=== PATIENT | male | born 1960 | race Caucasian/White ===

== ENCOUNTER 2016-09-07 20:37 | Emergency (ER) | payer OTHER ==
[~2016-09-07] VITALS: Ht 177.8 cm; Wt 99.8 kg
--- NOTE | 2016-09-07 21:14 | ED PSYCHIATRIC COMPLAINT ---
History of Present Illness General Chief Complaint: ETOH/Drug Related Complaint Stated Complaint: BIBA ETOH Source: patient, family, old records, EMS, police Exam Limitations: no limitations Vital Signs & Intake/Output Vital Signs & Intake/Output Vital Signs Date Time Temp Pulse Resp B/P Pulse O2 O2 Flow FiO2 Ox Delivery Rate 09/08 626 98.4 81 20 146/81 95 Room Air 09/077 Room Air 09/07 2111 110 20 188/102 95 Room Air ED Intake and Output 09/08 0000 09/07 1200 Intake Total Output Total Balance Patient 220 lb Weight Allergies Coded Allergies: Sulfa (Sulfonamide Antibiotics) (UNKNOWN 09/07/16) Triage Note: PT BIBA TO ROOM 8. PT ACCOMPANIED WITH SON, PER PT HE DRANK TOO MUCH TONIGHT. PT IS PLACED ON A PEER, PT TEARFUL ON ARRIVAL, CALM AND COOPERATIVE. PT STATES HE DOES NOT DRINK DAILY, HE USUALLY DRINKS BEER BUT STOPPED. PT DENIES ANY WITHDRAWAL SYMPTOMS WHEN DRINKING STOPS. PER PT SON HE IS ON A STRICT DIET AND DRANK BOURBON THIS EVENING. Triage Nurses Notes Reviewed? yes Onset: Just prior to arrival Duration: minute(s):, constant, continues in ED Timing: recent history Severity: moderate Associated Symptoms: anxiety, impaired concentration HPI: Patient admits to using alcohol to cope with life stress and has been dieting. He had a heated argument with spouse and children. Police were called. She denies fever chills nausea vomiting diarrhea abdominal pain chest pain shortness breath headache dysuria rash bleeding suicidal ideation homicidal ideation hallucination. Past History Travel History Traveled to [place] past 21 day No Medical History Any Pertinent Medical History? none Pneumonia Vaccine: 08/10/09 Influenza Vaccine: 08/10/09 Surgical History Surgical History: non-contributory Psychosocial History Who do you live with Spouse Services at Home None What is your primary language Lithuanian Tobacco Use: Refused to answer Family History Hx Contributory? No Review of Systems Review of Systems Constitutional: Reports: no symptoms. EENTM: Reports: no symptoms. Respiratory: Reports: no symptoms. Cardiovascular: Reports: no symptoms. GI: Reports: no symptoms. Genitourinary: Reports: no symptoms. Musculoskeletal: Reports: no symptoms. Skin: Reports: no symptoms. Neurological/Psychological: Reports: see HPI, anxiety, confusion, emotional problems. Hematologic/Endocrine: Reports: no symptoms. Immunologic/Allergic: Reports: no symptoms. All Other Systems: Reviewed and Negative Physical Exam Physical Exam General Appearance: well developed/nourished, alert, awake, anxious, mild distress, obese Head: atraumatic, normal appearance Eyes: Bilateral: normal appearance, PERRL, EOMI. Ears, Nose, Throat: normal pharynx, normal ENT inspection, hearing grossly normal Neck: normal inspection, supple, full range of motion, no midline tenderness Respiratory: normal breath sounds, chest non-tender, no respiratory distress, quiet respiration, lungs clear Cardiovascular: regular rate/rhythm, normal peripheral pulses, norml femoral pulses equa Gastrointestinal: normal bowel sounds, soft, non-tender, no organomegaly Extremities: normal range of motion, no ligament instability Neurological/Psychiatric: no motor/sensory deficits, awake, agitated, alert, anxious, residential treatment counselor II-XII nml as tested Appearance/Memory/Insight: impaired insight Behavoir/Eye Contact/Speech: cooperative, normal speech Thoughts/Hallucinations: no apparent hallucination Skin: intact, normal color, warm/dry SAD PERSONS Done? patient not suicidal Progress Differential Diagnosis: drug intoxication, drug overdose, hypoglycemia Plan of Care: Orders Procedure Date/time Status Regular Diet 09/08 B Active observation and sobriety (MIKE PARIKH MD) Departure Departure Time of Disposition: 0600 Disposition: HOME OR SELF CARE Condition: Stable Clinical Impression Primary Impression: Alcohol intoxication delirium Referrals: TAMRA SHERWOOD MD (PCP/Family) Departure Forms: General Discharge Information
[2016-09-08 06:27] VITALS: BP 146/81
== END 2016-09-08 07:12 ==
LOC: ERH 20:37
DX: F10.121 Alcohol abuse with intoxication delirium (principal)